=== PATIENT | female | born 1985 | race Caucasian/White ===

== ENCOUNTER 2016-07-22 16:29 | Emergency (ER) | payer MEDICAID ==
[~2016-07-22] VITALS: Ht 160 cm; Wt 69.0 kg
[2016-07-22 19:14] LABS: BASOPHILS % 0.9 % (0.0-2.0); EOSINOPHILS % 0.9 % (0.0-5.0); HEMATOCRIT. 41.2 % (36.0-48.0); HEMOGLOBIN. 13.8 g/dL (12.0-16.0); LYMPHOCYTES % 35.6 % (20.0-50.0); MEAN CORPUSCULAR HEMOGLOBIN 28.9 pg (28.0-32.0); MEAN CORPUSCULAR VOLUME 86.5 fL (81.0-99.0); MEAN PLATELET VOLUME 7.8 fl (7.4-10.4); MONOCYTES % 8.1 % (2.0-8.0); NEUTROPHILS % 54.5 % (40.0-76.0); PLATELET 373 x1000/uL (130-400); RED BLOOD CELL COUNT 4.76 mill/uL (4.2-5.4); RED CELL DISTRIBUTION WIDTH 13.8 % (11.6-14.6)
[2016-07-22 19:16] LABS: CHLORIDE 106 mEq/L (98-107)
[2016-07-22] MEDS ORDERED: ONDANSETRON HCL 4MG/2ML VIAL IV STA (19:19)
[2016-07-22] MEDS ORDERED: KETOROLAC 30MG/ML VIAL IV STA (19:19)
[2016-07-22] MEDS ORDERED: FAMOTIDINE 20MG/2ML VIAL IV STA (19:19)
[2016-07-22] MEDS ORDERED: SODIUM CHLORIDE 0.9% 1,000 ML IV ONE (19:19)
[2016-07-22 19:21] LABS: CARBON DIOXIDE 28 mEq/L (21-32); HCG SCREEN NEGATIVE
[2016-07-22] MEDS ORDERED: POTASSIUM CHLORIDE 20MEQ TABLET SR PO ONE (19:30)
[2016-07-22 19:47] LABS: CLARITY URINE CLOUDY (CLEAR); COLOR URINE YELLOW (YELLOW); GLUCOSE URINE NEGATIVE (NEGATIVE); KETONES URINE TRACE (NEGATIVE); LEUKOCYTE ESTERASE URINE NEGATIVE (NEGATIVE); NITRITE URINE NEGATIVE (NEGATIVE); OCCULT BLOOD URINE NEGATIVE (NEGATIVE); PH URINE 5.5 (4.5-8.0); PROTEIN URINE 1+ (NEGATIVE); SPECIFIC GRAVITY URINE 1.021 (1.005-1.030); UROBILINOGEN URINE 0.2 E.U./dL (0.2-1.0)
[2016-07-22 20:06] LABS: *AMPHETAMINES SCREEN URINE NEGATIVE (NEGATIVE); *BARBITURATES SCREEN URINE NEGATIVE (NEGATIVE); *COCAINE SCREEN URINE NEGATIVE (NEGATIVE); PHENCYCLIDINE URINE SCREEN NEGATIVE (NEGATIVE)
[2016-07-22 20:07] LABS: *BENZODIAZEPINES SCREEN URINE PRESUMTIVE POSITIVE (NEGATIVE); CANNABINOID URINE SCREEN PRESUMTIVE POSITIVE (NEGATIVE); METHADONE URINE SCREEN PRESUMTIVE POSITIVE (NEGATIVE); OPIATES URINE SCREEN PRESUMTIVE POSITIVE (NEGATIVE)
[2016-07-22 20:29] VITALS: BP 131/83
== END 2016-07-22 22:16 | disposition home or self-care (01) ==
LOC: ER 17:14
DX: N39.0 Urinary tract infection, site not specified (principal); E86.0 Dehydration; E87.6 Hypokalemia; F11.20 Opioid dependence, uncomplicated; F19.20 Other psychoactive substance dependence, uncomplicated; F12.20 Cannabis dependence, uncomplicated; G89.29 Other chronic pain; R10.9 Unspecified abdominal pain; M54.9 Dorsalgia, unspecified; Z87.448 Personal history of other diseases of urinary system
CPT/HCPCS: 36415; 76770; 80048; 80305; 81001; 84703; 85025; 96361; 96374; 96375; 99285; J1885; J2405; J3490; J7030